=== PATIENT | female | born 1985 | race Caucasian/White ===

== ENCOUNTER → 2020-01-14 09:28 | Outpatient (CLI) | payer SELFPAY ==
--- NOTE | 2020-01-14 | DI.US.S_ITS ---
PROCEDURE: US OB <= 14 WEEKS FETUS INDICATIONS: SIZE AND DATES OUTSIDE/PRIOR DATING DATA: Last menstrual period (LMP): 11/10/19. LMP-based estimated date of delivery (DRAKE): 08/16/20. First dating scan (date and location): This study, 01/16/20. Estimated date of delivery (DRAKE) from first dating scan: Not applicable, demise. TECHNIQUE: Real-time scanning was performed of the fetus and maternal pelvic organs, with image documentation. Endovaginal scanning was also performed to better visualize the fetus and maternal ovaries. COMPARISON: None. FINDINGS: Embryo: 1.4 cm crown-rump length, 7 weeks 5 days the current estimated gestational age. demise given absence of visualized cardiac activity over time. Note is made of a subchorionic hemorrhage that measures up to 4.8 x 2.9 x 4.3 cm adjacent to the gestational margin. Measurement variability in dating: +/- 4 weeks by LMP, +/- 7 days by mean sac diameter (use before 6 weeks gestation if crown-rump length not able to be measured), +/- 5 days by crown-rump length (up to 8 weeks 6 days gestation), +/- 7 days by crown-rump length (up to 13 weeks 6 days gestation). Maternal organs: Ovaries normal. Limited images through the kidneys demonstrate no hydronephrosis. IMPRESSION: demise, current estimated gestational age by crown-rump length is 7 weeks 5 days. No visualized cardiac activity. Large adjacent subchorionic hemorrhage. The ordering health care provider was contacted personally to discuss these findings and to provide guidance for subsequent followup. Dr. Hayes will contact the patient personally for further discussion. Dictated by: Micha Panda M.D. on 01/14/2020 at 12:37 Approved by: Micha Panda M.D. on 01/14/2020 at 12:40
== END ==
PROVIDERS: Referring Provider Family Medicine; Visit Provider Family Medicine
DX: O02.1 Missed abortion (principal)
CPT/HCPCS: 76801; 76817

== ENCOUNTER → 2020-11-02 12:56 | Outpatient (CLI) | payer OTHER, SELFPAY ==
[2020-11-02 20:28] LABS: COVID19 - ORCAS (NP or Nasal) Negative (Negative)
== END ==
PROVIDERS: PCP Family Medicine; Visit Provider Family Medicine
DX: Z20.822 Contact with and (suspected) exposure to COVID-19 (principal)
CPT/HCPCS: U0003